=== PATIENT | male | born 1995 | race Caucasian/White ===

== ENCOUNTER 2018-07-13 15:08 | Emergency (ER) | payer OTHER ==
--- NOTE | 2018-07-13 17:28 | ED ---
Upper Extremity Pain - HPI Summary HPI Summary: Patient is a 23-year-old male who presents emergency department for left crush injury to hand. Patient states he was in a basket cutting down a tree when the tree fell and caught his hand between the tree and a piece of metal. No other injuries were sustained. Symptoms are mild in severity. Moving and touching hand makes symptoms worse. Rest makes sxs better. No significant past medical history. - History of Current Complaint Chief Complaint: EDExtremityUpper Stated Complaint: LT HAND INJURY PER PT Time Seen by Provider: 07/13/18 15:14 Hx Obtained From: Patient - Allergies/Home Medications Allergies/Adverse Reactions: Allergies Allergy/AdvReac Type Severity Reaction Status Date / Time No Known Allergies Allergy Verified 07/13/18 15:18 Home Medications: Home Medications NK [No Home Medications Reported] 07/13/18 [History Confirmed 07/13/18] PMH/Surg Hx/FS Hx/Imm Hx Previously Healthy: Yes Infectious Disease History: No Infectious Disease History: Denies: Traveled Outside the [place] in Last 30 Days - Family History Known Family History: Positive: Non-Contributory - Social History Occupation: Employed Full-time Lives: With Family Alcohol Use: Weekly Substance Use Type: Reports: None Smoking Status (MU): Never Smoked Tobacco Review of Systems Positive: Other - left hand pain Positive: Rash. Negative: Bruising Positive: Paresthesia All Other Systems Reviewed And Are Negative: Yes Physical Exam Triage Information Reviewed: Yes Vital Signs On Initial Exam: Initial Vitals Temp Pulse Resp BP Pulse Ox 97.7 F 95 18 138/92 100 07/13/18 15:10 07/13/18 15:10 07/13/18 15:10 07/13/18 15:10 07/13/18 15:10 Vital Signs Reviewed: Yes Appearance: Positive: Well-Appearing - Pt. sitting on bed in NAD. Coworker present. Skin: Positive: Warm, Dry Head/Face: Positive: Normal Head/Face Inspection Eyes: Positive: Normal, EOMI Neck: Positive: Supple Musculoskeletal: Positive: Other - Good left radial pulse. No breaks in the skin. Mild-moderate edema noted over 2nd and 3rd metacarpal region. Pain with flexion of 2nd and 3rd digits. No wrist pain Neurological: Positive: Normal, CN Intact II-III Psychiatric: Positive: Affect/Mood Appropriate Procedures - Splinting Left Upper Extremity Hand-Made Type: orthoglass Splint: volar Pre-Proc Neuro Vasc Exam: normal Post-Proc Neuro Vasc Exam: normal Diagnostics - Vital Signs Vital Signs Temp Pulse Resp BP Pulse Ox 07/13/18 15:10 97.7 F 95 18 138/92 100 - Laboratory Lab Statement: Any lab studies that have been ordered have been reviewed, and results considered in the medical decision making process. Course/Dx - Course Course Of Treatment: Patient presenting with crush injury of left hand. Hand x- rays negative for fracture or dislocation, reading per radiology. Patient initially complaining of pain and difficulty flexing second and third digits. On reevaluation patient is moving digits more freely. He does not have significant pain and do not suspect compartment syndrome at this time. Volar splint was placed for comfort. Advised patient to follow up with orthopedics if pain persists. Advised patient to elevate and ice intermittently. Ibuprofen for pain and swelling as directed. patient instructed on signs and symptoms mild compartment syndrome return to the ER immediately for any sxs. Patient understands and agrees with plan. Pt. understands and agrees with plan. - Diagnoses Differential Diagnosis/HQI/PQRI: Positive: Contusion, Fracture (Closed), Hematoma, Strain, Sprain Provider Diagnoses: Hand contusion, Crush injury of hand Discharge - Sign-Out/Discharge Documenting (check all that apply): Patient Departure Patient Received Moderate/Deep Sedation with Procedure: No - Discharge Plan Condition: Good Disposition: HOME Patient Education Materials: Contusion in Adults (ED), Crush Injury (ED) Forms: *Work Release Referrals: Andrew Kramer MD [Medical Doctor] - Additional Instructions: Schedule a follow up appointment with orthopedics if pain persist Ice and elevate intermittently to help with pain and swelling Ibuprofen for pain as directed Wear splint for comfort Return to ER immediately for worsening pain, excessive swelling, inability to move fingers - Billing Disposition and Condition Condition: GOOD Disposition: Home
[2018-07-13 17:29] VITALS: BP 132/73
== END 2018-07-13 17:28 | disposition home or self-care (01) ==
LOC: ED 15:08
DX: S67.22XA Crushing injury of left hand, initial encounter (principal); S60.222A Contusion of left hand, initial encounter; W20.8XXA Other cause of strike by thrown, projected or falling object, initial encounter; Y93.H9 Activity, other involving exterior property and land maintenance, building and construction; Y92.9 Unspecified place or not applicable; Y99.0 Civilian activity done for income or pay
CPT/HCPCS: 99282